=== PATIENT | male | born 1960 | race Hispanic/Latino ===

== ENCOUNTER 2024-01-23 22:16 | Emergency (ER) | payer MEDICARE ==
[~2024-01-23] VITALS: Ht 170.2 cm; Wt 62.6 kg
[2024-01-23 22:25] VITALS: PULSE 89; RESP 18; TEMP 98.3
[2024-01-23] MEDS: TETANUS/DIPHTHERIA TOX ADULT 0.5 ML SYR IM ONE (22:47)
[2024-01-23] MEDS: INSULIN REGULAR, HUMAN 100 UNIT/1 ML SQ STA (22:48)
[2024-01-24 00:12] VITALS: BP 119/76; PULSE 89; RESP 16; TEMP 98; O2SAT 98
[2024-01-24] MEDS ORDERED: CEPHALEXIN500 MG PO (00:12)
== END 2024-01-24 00:12 | disposition home or self-care (01) ==
LOC: ER 22:22
DX: S61.431A Puncture wound without foreign body of right hand, initial encounter (principal); W45.0XXA Nail entering through skin, initial encounter; Y92.89 Other specified places as the place of occurrence of the external cause; I10 Essential (primary) hypertension; E11.65 Type 2 diabetes mellitus with hyperglycemia; E78.5 Hyperlipidemia, unspecified; Z86.73 Personal history of transient ischemic attack (TIA), and cerebral infarction without residual deficits
CPT/HCPCS: 36415; 82948; 90471; 90714; 99283